=== PATIENT | female | born 2005 | race Native Hawaiian/Other Pacific Islander ===

== ENCOUNTER 2025-03-15 10:39 | Emergency (ER) | payer OTHER ==
[~2025-03-15] VITALS: Ht 147.3 cm; Wt 57.7 kg
[2025-03-15 14:24] VITALS: BP 104/58; TEMP 96.2; O2SAT 100
== END 2025-03-15 14:30 | disposition home or self-care (01) ==
LOC: M ED 10:39
DX: M25.561 Pain in right knee (principal)

== ENCOUNTER 2025-10-19 19:52 | Emergency (ER) | payer OTHER ==
[~2025-10-19] VITALS: Ht 147.3 cm; Wt 57.7 kg
[2025-10-19 21:01] LABS: BASO # 0.1 10^3/uL (0.0-0.2); BASO % 0.7 % (0.0-1.0); EOS # 0.1 10^3/uL (0.0-0.5); EOS % 0.7 % (0.0-3.0); LYMPH # 2.5 10^3/uL (1.5-5.0); LYMPH % 27.8 % (24.0-44.0); MONO # 0.9 10^3/uL (0.0-0.8); MONO % 9.6 % (2.0-8.0); NEUTROPHILS # 5.5 10^3/uL (1.5-8.5); NEUTROPHILS % 60.8 % (36.0-66.0); PLATELET COUNT, AUTOMATED 270 10^3/uL (150-450)
[2025-10-19 21:30] LABS: HCG, SERUM QUANTITATIVE 17.0 MIU/ML (<4.2)
[2025-10-19 22:46] LABS: CALCIUM LEVEL 8.6 MG/DL (8.5-10.1); CARBON DIOXIDE LEVEL 25 MMOL/L (20-31); CHLORIDE LEVEL 106 MMOL/L (98-107); CREATININE FOR GFR 0.62 MG/DL (0.55-1.30); GLOMERULAR FILTRATION RATE > 90.0 (>60); POTASSIUM SERUM 3.7 MMOL/L (3.5-5.1); SODIUM LEVEL 142 MMOL/L (136-145)
[2025-10-20 03:50] VITALS: BP 122/74; TEMP 97.4; O2SAT 98
== END 2025-10-20 03:45 | disposition home or self-care (01) ==
LOC: M ED 19:52
DX: O20.0 Threatened abortion (principal); Z3A.00 Weeks of gestation of pregnancy not specified